=== PATIENT | female | born 2000 | race Caucasian/White ===

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

== ENCOUNTER 2020-04-20 10:57 | Emergency (ER) | payer OTHER ==
[~2020-04-20 10:57] MED LIST: ALBENZA200 MG PO; BENTYL 10MG CAP10 MG PO; BENTYL 20MG TAB20 MG PO; FLEXERIL 10 MG10 MG PO; IBUPROFEN600 MG PO; MACROBID 100 M100 MG PO; OMNICEF 300 MG300 MG PO; PHENERGAN 12.12.5 M1 PO; PROTONIX40 MG PO; ROBITUSSIN AC480 ML PO; VIBRAMYCIN100 MG PO; Voltaren Gel 1% TOP; ZANTAC150 MG PO; ZOFRAN ODT 4 MG4 MG PO; ZOFRAN4 MG PO
[2020-04-20 12:50] LABS: HEMOGLOBIN 12.1 gm/dl (12.3-15.3); RED BLOOD COUNT 4.23 M/UL (4.00-5.10); WHITE BLOOD COUNT 8.6 K/UL (4.5-11.0)
[2020-04-20 13:16] LABS: BUN/CREATININE RATIO 9 (0-10)
[2020-04-20] MEDS ORDERED: PROAIR HFA8.5 GM INH (15:58)
[2020-04-20] MEDS ORDERED: CEFUROXIME500 MG PO (15:58)
== END 2020-04-20 16:15 | disposition home or self-care (01) ==
LOC: ER1 10:57
PROVIDERS: Emergency Medicine
DX: O99.512 Diseases of the respiratory system complicating pregnancy, second trimester (principal); J20.9 Acute bronchitis, unspecified; O23.42 Unspecified infection of urinary tract in pregnancy, second trimester; O99.891 Other specified diseases and conditions complicating pregnancy; R07.81 Pleurodynia; O99.612 Diseases of the digestive system complicating pregnancy, second trimester; K21.9 Gastro-esophageal reflux disease without esophagitis; Z88.1 Allergy status to other antibiotic agents; Z79.899 Other long term (current) drug therapy; Z3A.19 19 weeks gestation of pregnancy
CPT/HCPCS: ECHO; 36415; 71045; 80053; 81001; 82550; 82553; 83874; 84484; 85025; 85379; 93005; 93306; 99285

== ENCOUNTER 2020-05-01 11:10 | Outpatient (CLI) | payer OTHER ==
[~2020-05-01 11:10] MED LIST changes: +CEFUROXIME500 MG PO; +PROAIR HFA8.5 GM INH
== END 2020-05-01 14:41 | disposition home or self-care (01) ==
LOC: GENOP 11:10
PROVIDERS: Obstetrics & Gynecology
DX: O99.891 Other specified diseases and conditions complicating pregnancy (principal); R10.9 Unspecified abdominal pain; K92.0 Hematemesis; Z3A.22 22 weeks gestation of pregnancy
CPT/HCPCS: 80307; 81001; G0463

== ENCOUNTER 2020-05-05 19:58 | Emergency (ER) | payer OTHER ==
[2020-05-05 21:13] LABS: HEMOGLOBIN 11.3 gm/dl (12.3-15.3); RED BLOOD COUNT 3.92 M/UL (4.00-5.10); WHITE BLOOD COUNT 9.7 K/UL (4.5-11.0)
[2020-05-05 21:38] LABS: BUN/CREATININE RATIO 9 (0-10)
[2020-05-05] MEDS ORDERED: ZOFRAN ODT 4 MG4 MG PO (22:48)
== END 2020-05-05 23:01 | disposition home or self-care (01) ==
LOC: ER1 19:58
PROVIDERS: Family Medicine
DX: O99.891 Other specified diseases and conditions complicating pregnancy (principal); R10.9 Unspecified abdominal pain; O99.282 Endocrine, nutritional and metabolic diseases complicating pregnancy, second trimester; E87.6 Hypokalemia; O99.332 Smoking (tobacco) complicating pregnancy, second trimester; F17.210 Nicotine dependence, cigarettes, uncomplicated; Z79.899 Other long term (current) drug therapy; Z88.1 Allergy status to other antibiotic agents; Z3A.24 24 weeks gestation of pregnancy
CPT/HCPCS: 80053; 81001; 83605; 83690; 85025; 96374; 99284; J2405

== ENCOUNTER 2020-05-26 08:55 | Outpatient (CLI) | payer SELFPAY ==
[2020-05-27] MEDS ORDERED: CLEOCIN HCL300 MG PO (03:38)
== END 2020-05-26 10:51 | disposition home or self-care (01) ==
LOC: GENOP 08:55
DX: O99.891 Other specified diseases and conditions complicating pregnancy (principal); R10.9 Unspecified abdominal pain; M54.9 Dorsalgia, unspecified; K08.89 Other specified disorders of teeth and supporting structures; Z3A.26 26 weeks gestation of pregnancy
CPT/HCPCS: G0463

== ENCOUNTER 2020-05-26 21:12 | Emergency (ER) | payer OTHER ==
[2020-05-27 03:15] LABS: BUN/CREATININE RATIO 9 (0-10)
[2020-05-27 03:27] LABS: HEMOGLOBIN 10.3 gm/dl (12.3-15.3); RED BLOOD COUNT 3.63 M/UL (4.00-5.10)
[2020-05-27] MEDS ORDERED: CLEOCIN HCL300 MG PO (03:38)
== END 2020-05-27 04:00 | disposition home or self-care (01) ==
LOC: ER1 21:12
PROVIDERS: Internal Medicine
DX: O99.612 Diseases of the digestive system complicating pregnancy, second trimester (principal); K04.7 Periapical abscess without sinus; O23.42 Unspecified infection of urinary tract in pregnancy, second trimester; Z88.1 Allergy status to other antibiotic agents
CPT/HCPCS: 80053; 81001; 84484; 84702; 85025; 93005; 96365; 96367; 99283; G0463; J0696

== ENCOUNTER → 2020-07-12 | Outpatient (CLI) | payer OTHER ==
[~2020-07-12] MED LIST changes: +CLEOCIN HCL300 MG PO; +DOCUSATE SODIU100 MG PO; +HYDROCODON-ACE1 EAC4 PO; +MACROBID 100 M100 M1 PO
== END ==
LOC: GENOP 12:20
DX: R07.9 Chest pain, unspecified (principal); R11.10 Vomiting, unspecified
CPT/HCPCS: 36415; 80053; 81001; 82150; 83690; 85025; 93005; G0463; J7120

== ENCOUNTER 2020-07-16 17:36 | Emergency (ER) | payer OTHER ==
[~2020-07-16 17:36] MED LIST changes: -DOCUSATE SODIU100 MG PO; -HYDROCODON-ACE1 EAC4 PO; -MACROBID 100 M100 M1 PO
[2020-07-16 19:09] LABS: HEMOGLOBIN 9.9 gm/dl (12.3-15.3); RED BLOOD COUNT 3.65 M/UL (4.00-5.10); WHITE BLOOD COUNT 6.9 K/UL (4.5-11.0)
[2020-07-16 19:27] LABS: BUN/CREATININE RATIO 15 (0-10)
== END 2020-07-16 20:39 | disposition home or self-care (01) ==
LOC: ER1 17:36
PROVIDERS: Physician Assistant
DX: O99.891 Other specified diseases and conditions complicating pregnancy (principal); R07.9 Chest pain, unspecified; J45.909 Unspecified asthma, uncomplicated; O99.513 Diseases of the respiratory system complicating pregnancy, third trimester; Z3A.31 31 weeks gestation of pregnancy; Z88.1 Allergy status to other antibiotic agents
CPT/HCPCS: 71045; 80053; 81001; 82550; 82553; 83874; 83880; 84484; 85025; 85379; 85610; 85730; 93005; 99285

== ENCOUNTER 2020-08-03 18:29 | Outpatient (CLI) | payer OTHER | END 2020-08-03 22:13 | disposition home or self-care (01) | LOC: GENOP 18:29 | DX: O47.03 False labor before 37 completed weeks of gestation, third trimester (principal); O99.891 Other specified diseases and conditions complicating pregnancy; M41.9 Scoliosis, unspecified; R09.1 Pleurisy; O99.333 Smoking (tobacco) complicating pregnancy, third trimester; F17.210 Nicotine dependence, cigarettes, uncomplicated; O99.343 Other mental disorders complicating pregnancy, third trimester; F41.9 Anxiety disorder, unspecified; O99.353 Diseases of the nervous system complicating pregnancy, third trimester; G43.909 Migraine, unspecified, not intractable, without status migrainosus; O99.513 Diseases of the respiratory system complicating pregnancy, third trimester; J45.909 Unspecified asthma, uncomplicated; Z79.899 Other long term (current) drug therapy; Z88.1 Allergy status to other antibiotic agents; Z3A.34 34 weeks gestation of pregnancy | CPT/HCPCS: 81001; G0463 ==

== ENCOUNTER 2020-08-06 17:57 | Outpatient (CLI) | payer OTHER | END 2020-08-06 20:13 | disposition home or self-care (01) | LOC: GENOP 17:57 | DX: O42.913 Preterm premature rupture of membranes, unspecified as to length of time between rupture and onset of labor, third trimester (principal); Z3A.34 34 weeks gestation of pregnancy | CPT/HCPCS: 83518; G0463; J7120 ==

== ENCOUNTER 2020-08-18 13:32 | Emergency (ER) | payer OTHER ==
[2020-08-18 14:42] LABS: HEMOGLOBIN 10.3 gm/dl (12.3-15.3); RED BLOOD COUNT 4.07 M/UL (4.00-5.10); WHITE BLOOD COUNT 8.8 K/UL (4.5-11.0)
[2020-08-18 15:01] LABS: BUN/CREATININE RATIO 11 (0-10)
[2020-08-18] MEDS ORDERED: MACROBID 100 M100 M1 PO (15:37)
[2020-08-18] MEDS ORDERED: HYDROCODON-ACE1 EAC4 PO (20:53)
[2020-08-18] MEDS ORDERED: IBUPROFEN600 MG PO (20:53)
[2020-08-18] MEDS ORDERED: DOCUSATE SODIU100 MG PO (20:53)
== END 2020-08-18 15:58 | disposition home or self-care (01) ==
LOC: ER1 13:32
PROVIDERS: Emergency Medicine
DX: O9A.213 Injury, poisoning and certain other consequences of external causes complicating pregnancy, third trimester (principal); O23.43 Unspecified infection of urinary tract in pregnancy, third trimester; Z3A.36 36 weeks gestation of pregnancy; W19.XXXA Unspecified fall, initial encounter
CPT/HCPCS: 80053; 81001; 85025; 87086

== ENCOUNTER 2020-08-18 19:34 | Inpatient (IN) | payer OTHER ==
[~2020-08-18] VITALS: Ht 160 cm; Wt 46.7 kg
[~2020-08-18 19:34] MED LIST changes: +MACROBID 100 M100 M1 PO
[2020-08-18 20:44] LABS: HEMOGLOBIN 9.2 gm/dl (12.3-15.3); RED BLOOD COUNT 3.69 M/UL (4.00-5.10)
[2020-08-18 20:46] LABS: WHITE BLOOD COUNT 11.4 K/UL (4.5-11.0)
[2020-08-18] MEDS ORDERED: DOCUSATE SODIU100 MG PO (20:53)
[2020-08-18] MEDS ORDERED: IBUPROFEN600 MG PO (20:53)
[2020-08-18] MEDS ORDERED: HYDROCODON-ACE1 EAC4 PO (20:53)
[2020-08-19 06:09] LABS: HEMOGLOBIN 8.9 gm/dl (12.3-15.3)
== END 2020-08-21 14:45 | disposition home or self-care (01) | DRG 787 ==
LOC: GENOP 19:34 → OB 20:24
PROVIDERS: ADMIT Obstetrics & Gynecology
PROC: 4A1HXCZ Monitoring of Products of Conception, Cardiac Rate, External Approach (ICD-10-PCS; 2020-08-18)
PROC: 10D00Z1 Extraction of Products of Conception, Low, Open Approach (ICD-10-PCS; principal; 2020-08-18 21:38)
PROC: 3E0234Z Introduction of Serum, Toxoid and Vaccine into Muscle, Percutaneous Approach (ICD-10-PCS; 2020-08-21)
DX: O60.14X0 Preterm labor third trimester with preterm delivery third trimester, not applicable or unspecified (principal); O41.03X0 Oligohydramnios, third trimester, not applicable or unspecified; Z3A.36 36 weeks gestation of pregnancy; Z37.0 Single live birth; O36.5930 Maternal care for other known or suspected poor fetal growth, third trimester, not applicable or unspecified; O32.1XX0 Maternal care for breech presentation, not applicable or unspecified; O99.02 Anemia complicating childbirth; D64.9 Anemia, unspecified; O99.52 Diseases of the respiratory system complicating childbirth; J45.909 Unspecified asthma, uncomplicated; Z20.822 Contact with and (suspected) exposure to COVID-19; O75.89 Other specified complications of labor and delivery; Z23 Encounter for immunization
CPT/HCPCS: 36415; 80053; 81001; 82800; 85014; 85018; 85025; 87086; 99284; C9113; J0690; J1885; J2210; J2274; J2405; J2550; J2590; J3010; J7120; U0002

== ENCOUNTER 2020-12-02 16:03 | Emergency (ER) | payer OTHER ==
[~2020-12-02 16:03] MED LIST changes: +DOCUSATE SODIU100 MG PO; +HYDROCODON-ACE1 EAC4 PO
[2020-12-02 17:49] LABS: HEMOGLOBIN 10.2 gm/dl (12.3-15.3); RED BLOOD COUNT 4.94 M/UL (4.00-5.10); WHITE BLOOD COUNT 6.6 K/UL (4.5-11.0)
[2020-12-02 18:00] LABS: BUN/CREATININE RATIO 13 (0-10)
[2020-12-02] MEDS ORDERED: MACROBID 100 M100 MG PO (20:33)
[2020-12-02] MEDS ORDERED: ZOFRAN4 MG PO (20:33)
== END 2020-12-02 20:55 | disposition home or self-care (01) ==
LOC: ER1 16:03
PROVIDERS: Physician Assistant
DX: K52.9 Noninfective gastroenteritis and colitis, unspecified (principal); N39.0 Urinary tract infection, site not specified; Z90.49 Acquired absence of other specified parts of digestive tract; Z88.1 Allergy status to other antibiotic agents
CPT/HCPCS: 80053; 81001; 83690; 84703; 85025; 96374; 99284; J2405; Q9967